=== PATIENT | male | born 1955 | race Caucasian/White ===

== ENCOUNTER 2017-08-29 11:24 | Day surgery (SDC) | payer BC ==
[~2017-08-29] VITALS: Ht 175.3 cm; Wt 98.9 kg
[2017-08-29 11:44] VITALS: BP 138/83; PULSE 62; TEMP 97.9
[2017-08-29] MEDS ORDERED: ASPIRIN 81M81 MG/TA2 PO (11:48)
[2017-08-29] MEDS ORDERED: COREG12.5 MG PO (11:48)
[2017-08-29] MEDS ORDERED: LIPITOR 80MG80 MG PO (11:48)
[2017-08-29] MEDS ORDERED: NORVASC2.5 MG PO (11:48)
[2017-08-29] MEDS ORDERED: NITROSTAT0.4 MG/TAB SL (11:49)
[2017-08-29] MEDS ORDERED: PLAVIX 75MG TAB75 MG PO (11:49)
[2017-08-29] MEDS ORDERED: CHANTIX 1MG1 MG PO (11:49)
[2017-08-29] MEDS ORDERED: PEPCID 20MG TAB20 MG PO (11:50)
[2017-08-29 13:45] VITALS: BP 141/74; PULSE 70; TEMP 97
[2017-08-29 14:00] VITALS: BP 150/83; PULSE 64
[2017-08-29 14:15] VITALS: BP 148/70; PULSE 62
[2017-08-29 14:20] VITALS: BP 141/74; PULSE 74
== END 2017-08-29 14:30 | disposition home or self-care (01) ==
LOC: SDCO 11:24
DX: Z12.11 Encounter for screening for malignant neoplasm of colon (principal); K63.5 Polyp of colon; K64.0 First degree hemorrhoids; I10 Essential (primary) hypertension; I25.10 Atherosclerotic heart disease of native coronary artery without angina pectoris; I25.2 Old myocardial infarction; E78.00 Pure hypercholesterolemia, unspecified; F17.210 Nicotine dependence, cigarettes, uncomplicated; Z95.5 Presence of coronary angioplasty implant and graft; Z95.828 Presence of other vascular implants and grafts; Z79.82 Long term (current) use of aspirin; Z79.02 Long term (current) use of antithrombotics/antiplatelets
CPT/HCPCS: OP; J2704; J7120